=== PATIENT | female | born 1965 | race Caucasian/White ===

== ENCOUNTER 2017-04-13 15:07 | Inpatient (IN) | payer BC, OTHER ==
[~2017-04-13] VITALS: Ht 165.1 cm; Wt 103.3 kg
[~2017-04-13 15:07] MED LIST: ADULT LOW STREN81 M2 PO; ALLEGRA ALLERG180 MG PO; ASPIR-LOW81 MG PO; ASPIRIN CHEWABL81 M2 PO; AVINZA90 MG PO; AVINza PO; Allegra PO; BUDEPRION SR150 MG PO; CALCIO DEL MAR500 MG PO; CELEXA40 MG PO; CRESTOR20 MG PO; CRESTOR40 MG PO; CYMBALTA60 MG PO; DESYREL100 MG PO; DEXILANT60 MG PO; FARXIGA10 MG PO; FLURAZEPAM HCL30 MG PO; FOLIC ACID1 MG PO; FOLVITE1 M1 PO; GABAPENTIN600 MG PO; LUNESTA3 MG PO; Lunesta PO; METHADONE10 MG PO; METHOTREXATE2.5 MG PO; MIRALAX255 GM PO; MIRAPEX0.25 MG PO; Mirapex PO; NEXIUM40 MG PO; NICODERM CQ1 EAC2 TD; NUVIGIL150 MG PO; PEPCID40 MG PO; Pepcid PO; SEROQUEL200 MG PO; SEROquel PO; SKELAXIN400 M1 PO; SKELAXIN800 MG PO; ST. JOSEPH ASPI81 MG PO; Skelaxin PO; TRAZODONE HCL100 MG PO; Tums PO; WELLBUTRIN XL150 MG PO; ZETIA10 MG PO; ZOFRAN4 MG/2 M1 IV
[2017-04-13 15:59] LABS: HEMATOCRIT 50.8 % (36.0-46.0); HEMOGLOBIN 16.5 G/DL (11.9-15.5); MCH 30.3 PG (29.0-34.0); MCHC 32.5 G/DL (30.0-36.0); MCV 93.4 FL (83-99); PLATELET COUNT 212 K/uL (156-360); RBC DIS.WIDTH-CV 14.5 % (11.8-14.6); RBC DIS.WIDTH-SD 48.9 % (39-53); RED BLOOD COUNT 5.44 M/uL (3.80-5.20); WHITE BLOOD COUNT 12.5 K/uL (4.1-10.2)
[2017-04-13 16:23] LABS: TROP-I INTERPRETATION NEGATIVE; TROPONIN-I 0.03 ng/mL (0.0-0.30)
[2017-04-13 16:29] LABS: CHLORIDE 106 mEq/L (99-109); POTASSIUM 4.9 mEq/L (3.7-5.4); SODIUM 140 mEq/L (136-147)
[2017-04-13 16:31] LABS: GLUCOSE 176 mg/dL (70-99)
[2017-04-13 16:32] LABS: TOTAL PROTEIN 7.4 g/dL (6.4-8.3)
[2017-04-13 16:33] LABS: TOTAL BILIRUBIN 0.4 mg/dL (0.0-1.0)
[2017-04-13 16:34] LABS: SERUM ETHYL ALCOHOL < 10 mg/dL
[2017-04-13 16:35] LABS: ALKALINE PHOSPHATASE 86 IU/L (3-129); CREATININE 0.7 mg/dL (0.6-1.3); GFR ESTIMATE (CALCULATED) > 59 mL/min/
[2017-04-13 16:36] LABS: UREA NITROGEN (BUN) 6 mg/dL (9-23)
[2017-04-13 16:37] LABS: AST (GOT) 23 IU/L (2-34)
[2017-04-13 16:38] LABS: ALT (GPT) 32 IU/L (3-49); CREATINE KINASE 39 IU/L (1-294)
[2017-04-13 16:57] LABS: BASE EXCESS -5.8 mEq/L (-3 to +3); BICARBONATE 24.4 mEq/L (22-26); CARBOXY HGB 3.4 % (0-5); COMMENTS - BLOOD GASES A+C+; DEVICE NFBM; METHEMOGLOBIN 0.7 % (0-1.5); O2 FLOW 15 L/MIN; PCO2 67 mm Hg (35-45); PO2 114 mm Hg (80-100); SITE LR; TOTAL RESP RATE 22 resp/min; pH 7.17 (7.35-7.45)
[2017-04-13 17:09] LABS: AMPHETAMINE NEGATIVE (500 ng/mL); BARBITURATES NEGATIVE (200 ng/mL); BENZODIAZEPINES NEGATIVE (150 ng/mL); BUPRENORPHINE NEGATIVE (10 ng/mL); COCAINE NEGATIVE (150 ng/mL); METHADONE PRESUMPTIVE POSITIVE (200 ng/mL); METHAMPHETAMINE NEGATIVE (500 ng/mL); OPIATES (MORPHINE) NEGATIVE (100 ng/mL); OXYCODONE NEGATIVE (100 ng/mL); PHENCYCLIDINE NEGATIVE (25 ng/mL); PROPOXYPHENE NEGATIVE (300 ng/mL); THC CANNABINOIDS NEGATIVE (50 ng/mL); TRICYCLIC ANTIDEPRESSANTS PRESUMPTIVE POSITIVE (300 ng/mL)
[2017-04-13 18:34] LABS: BASE EXCESS -5.6 mEq/L (-3 to +3); BICARBONATE 23.8 mEq/L (22-26); CARBOXY HGB 2.5 % (0-5); METHEMOGLOBIN 0.8 % (0-1.5)
[2017-04-13 18:35] LABS: PCO2 61 mm Hg (35-45); PO2 163 mm Hg (80-100); SITE LR
[2017-04-13 18:36] LABS: COMMENTS - BLOOD GASES A+C+; DEVICE VENT; FI02 50 %
[2017-04-13 18:37] LABS: MODE SPONT; PEEP 5 CM/H20; PRES. SUPPORT 10 CM/H2O; TOTAL RESP RATE 19 resp/min
[2017-04-13] MEDS ORDERED: TRIAZOLAM0.25 MG PO (21:04)
[2017-04-13] MEDS ORDERED: TOPIRAMATE25 MG PO (21:05)
[2017-04-13] MEDS ORDERED: CITALOPRAM HBR40 MG PO (21:06)
[2017-04-13] MEDS ORDERED: CLOPIDOGREL75 MG PO (21:07)
[2017-04-13] MEDS ORDERED: DULOXETINE HCL60 MG PO (21:09)
[2017-04-13] MEDS ORDERED: JARDIANCE10 MG PO (21:10)
[2017-04-13] MEDS ORDERED: PRAMIPEXOLE D0.25 MG PO (21:10)
[2017-04-13] MEDS ORDERED: EZETIMIBE10 MG PO (21:11)
[2017-04-13] MEDS ORDERED: BACLOFEN10 MG PO (21:12)
[2017-04-13] MEDS ORDERED: ROSUVASTATIN CA20 MG PO (21:13)
[2017-04-13] MEDS ORDERED: QUETIAPINE FUM200 MG PO (21:14)
[2017-04-13] MEDS ORDERED: DESYREL100 MG PO (21:15)
[2017-04-13] MEDS ORDERED: VIMOVO 500-201 EAC1 PO (21:16)
[2017-04-13 22:06] LABS: BASE EXCESS -3.3 mEq/L (-3 to +3); BICARBONATE 23.6 mEq/L (22-26); CARBOXY HGB 1.1 % (0-5); METHEMOGLOBIN 0.7 % (0-1.5); PO2 133 mm Hg (80-100)
[2017-04-13 22:07] LABS: COMMENTS - BLOOD GASES C+; DEVICE MASK VENT; FI02 50 %; MODE SPONT; PCO2 48 mm Hg (35-45); PEEP 5 CM/H20; PRES. SUPPORT 10 CM/H2O; SITE LR; TOTAL RESP RATE 20 resp/min
[2017-04-14 01:42] VITALS: BP 143/69
[2017-04-14 03:15] VITALS: BP 122/69
[2017-04-14 08:53] VITALS: BP 114/78
[2017-04-14 11:49] VITALS: BP 123/69
[2017-04-14] MEDS ORDERED: TRAMADOL HCL50 MG PO (15:18)
== END 2017-04-14 16:17 | disposition home or self-care (01) | DRG 205 ==
LOC: EME 15:07 → EDOF 21:10 → ENRESERV 21:19 → CANRESERV 21:29 → ENRESERV 21:35 → EDOF 23:58 → ENPENDDIS 04-14 → ENRESERV 04-14 → 4EAST 04-14 01:20
PROVIDERS: Emergency Medicine; Internal Medicine
PROC: 5A09357 Assistance with Respiratory Ventilation, Less than 24 Consecutive Hours, Continuous Positive Airway Pressure (ICD-10-PCS; principal; 2017-04-13)
DX: R09.02 Hypoxemia (principal); R40.20 Unspecified coma; E87.2 Acidosis; J44.1 Chronic obstructive pulmonary disease with (acute) exacerbation; F11.20 Opioid dependence, uncomplicated; E11.9 Type 2 diabetes mellitus without complications; K21.9 Gastro-esophageal reflux disease without esophagitis; G43.909 Migraine, unspecified, not intractable, without status migrainosus; G47.00 Insomnia, unspecified; G89.29 Other chronic pain; M79.7 Fibromyalgia; F32.9 Major depressive disorder, single episode, unspecified; F41.9 Anxiety disorder, unspecified; M19.90 Unspecified osteoarthritis, unspecified site; F17.210 Nicotine dependence, cigarettes, uncomplicated; E66.9 Obesity, unspecified; Z68.37 Body mass index [BMI] 37.0-37.9, adult; Z86.73 Personal history of transient ischemic attack (TIA), and cerebral infarction without residual deficits; Z79.02 Long term (current) use of antithrombotics/antiplatelets; Z79.82 Long term (current) use of aspirin
CPT/HCPCS: 36600; 70450; 71045; 80053; 81003; 82550; 82803; 82948; 84484; 85027; 94002; 94640; 99281; 99285; G0480; J1650; J2310; J2930; J7030; J7042

== ENCOUNTER 2017-09-21 20:52 | Emergency (ER) | payer BC, OTHER ==
[~2017-09-21] VITALS: Ht 170.2 cm; Wt 96.0 kg
[~2017-09-21 20:52] MED LIST changes: +BACLOFEN10 MG PO; +CITALOPRAM HBR40 MG PO; +CLOPIDOGREL75 MG PO; +DULOXETINE HCL60 MG PO; +EZETIMIBE10 MG PO; +JARDIANCE10 MG PO; +PRAMIPEXOLE D0.25 MG PO; +QUETIAPINE FUM200 MG PO; +ROSUVASTATIN CA20 MG PO; +TOPIRAMATE25 MG PO; +TRAMADOL HCL50 MG PO; +TRIAZOLAM0.25 MG PO; +VIMOVO 500-201 EAC1 PO
[2017-09-21] MEDS ORDERED: AUGMENTIN875 MG PO (21:45)
[2017-09-21] MEDS ORDERED: NORCO 5/3251 TABLET PO (21:57)
[2017-09-21 22:23] VITALS: BP 125/81
== END 2017-09-21 22:49 | disposition home or self-care (01) ==
LOC: EME 20:52
DX: H66.92 Otitis media, unspecified, left ear (principal); E11.9 Type 2 diabetes mellitus without complications; Z79.02 Long term (current) use of antithrombotics/antiplatelets; Z88.5 Allergy status to narcotic agent; Z88.6 Allergy status to analgesic agent; F17.200 Nicotine dependence, unspecified, uncomplicated
CPT/HCPCS: 99281; 99283; J3010

== ENCOUNTER 2017-09-23 09:13 | Emergency (ER) | payer BC, OTHER ==
[~2017-09-23] VITALS: Ht 170.2 cm; Wt 95.9 kg
[~2017-09-23 09:13] MED LIST changes: +AUGMENTIN875 MG PO; +NORCO 5/3251 TABLET PO
[2017-09-23 10:44] LABS: HEMATOCRIT 47.3 % (36.0-46.0); HEMOGLOBIN 16.7 G/DL (11.9-15.5); MCH 31.6 PG (29.0-34.0); MCHC 35.3 G/DL (30.0-36.0); MCV 89.4 FL (83-99); NRBC (%) 0.4 /100 WBC (0-0); PLATELET COUNT 205 K/uL (156-360); RBC DIS.WIDTH-CV 13.8 % (11.8-14.6); RBC DIS.WIDTH-SD 44.6 % (39-53); RED BLOOD COUNT 5.29 M/uL (3.80-5.20)
[2017-09-23 10:55] LABS: ALBUMIN 4.5 g/dL (3.2-4.8); CHLORIDE 108 mEq/L (99-109); POTASSIUM 3.4 mEq/L (3.7-5.4); SODIUM 141 mEq/L (136-147)
[2017-09-23 10:57] LABS: GLUCOSE 108 mg/dL (70-99); TOTAL PROTEIN 7.5 g/dL (6.4-8.3)
[2017-09-23 10:59] LABS: TOTAL BILIRUBIN 0.6 mg/dL (0.0-1.0)
[2017-09-23 11:00] LABS: SERUM ETHYL ALCOHOL < 10 mg/dL
[2017-09-23 11:01] LABS: ALKALINE PHOSPHATASE 77 IU/L (3-129); CREATININE 0.8 mg/dL (0.6-1.3); GFR ESTIMATE (CALCULATED) > 59 mL/min/
[2017-09-23 11:02] LABS: AST (GOT) 18 IU/L (2-34); UREA NITROGEN (BUN) 19 mg/dL (9-23)
[2017-09-23 11:03] LABS: DIRECT BILIRUBIN 0.3 mg/dL (0.0-0.3)
[2017-09-23 11:04] LABS: ALT (GPT) 29 IU/L (3-49)
[2017-09-23 11:26] LABS: AMPHETAMINE NEGATIVE (500 ng/mL); BARBITURATES NEGATIVE (200 ng/mL); BENZODIAZEPINES NEGATIVE (150 ng/mL); BUPRENORPHINE NEGATIVE (10 ng/mL); COCAINE NEGATIVE (150 ng/mL); METHADONE NEGATIVE (200 ng/mL); METHAMPHETAMINE NEGATIVE (500 ng/mL); OPIATES (MORPHINE) PRESUMPTIVE POSITIVE (100 ng/mL); OXYCODONE NEGATIVE (100 ng/mL); PHENCYCLIDINE NEGATIVE (25 ng/mL); PROPOXYPHENE NEGATIVE (300 ng/mL); THC CANNABINOIDS NEGATIVE (50 ng/mL); TRICYCLIC ANTIDEPRESSANTS PRESUMPTIVE POSITIVE (300 ng/mL)
[2017-09-23 12:57] LABS: APPEARANCE CLEAR ((CLEAR)); BILIRUBIN NEGATIVE; BLOOD SMALL; COLOR YELLOW ((YELLOW)); GLUCOSE (STRIP) >=500; KETONES 80; LEUKOCYTES NEGATIVE; NITRITE NEGATIVE; PROTEIN (STRIP) NEGATIVE
[2017-09-23 13:10] LABS: BACTERIA NONE SEEN /HPF; EPITHELIAL CELLS RARE /HPF; HYALINE CASTS 0-5 /LPF; MUCUS 2+ /LPF; RED BLOOD CELLS 0-5 /HPF (0-5); UCUL ADDED? NO; WHITE BLOOD CELLS 0-5 /HPF (0-5)
[2017-09-23 17:26] VITALS: BP 117/67
== END 2017-09-23 17:36 | disposition home or self-care (01) ==
LOC: EME 09:13
PROVIDERS: Emergency Medicine
DX: R51 Headache (principal); E11.9 Type 2 diabetes mellitus without complications; K21.9 Gastro-esophageal reflux disease without esophagitis; M79.7 Fibromyalgia; M48.00 Spinal stenosis, site unspecified; G43.909 Migraine, unspecified, not intractable, without status migrainosus; F41.9 Anxiety disorder, unspecified; F32.9 Major depressive disorder, single episode, unspecified; F17.200 Nicotine dependence, unspecified, uncomplicated; Z88.5 Allergy status to narcotic agent; Z88.6 Allergy status to analgesic agent; Z95.9 Presence of cardiac and vascular implant and graft, unspecified; Z90.710 Acquired absence of both cervix and uterus
CPT/HCPCS: 70450; 70491; 71046; 80048; 80076; 81003; 82140; 82948; 84999; 85027; 93005; 99281; 99285; G0480; J1100; J1200; J1885; J2270; J2765; J7040

== ENCOUNTER 2017-09-24 12:45 | Inpatient (IN) | payer BC, OTHER ==
[~2017-09-24] VITALS: Ht 170.2 cm; Wt 100.0 kg
[2017-09-24 14:51] LABS: BASOPHIL (%) 0.2 % (0-1); EOSINOPHIL (%) 0.2 % (0-5); HEMATOCRIT 45.2 % (36.0-46.0); HEMOGLOBIN 15.9 G/DL (11.9-15.5); IMMATURE GRANULOCYTE (%) 0.5 % (0.0-0.7); LYMPHOCYTE COUNT 2.6 K/uL (1.0-2.8); MCH 31.7 PG (29.0-34.0); MCHC 35.2 G/DL (30.0-36.0); MONOCYTE (%) 6.8 % (3-12); MONOCYTE COUNT 0.7 K/uL (0-0.8); NEUTROPHIL (%) 67.3 % (45-76); NEUTROPHIL COUNT 7.1 K/uL (1.8-6.4); PLATELET COUNT 186 K/uL (156-360); RBC DIS.WIDTH-SD 46.2 % (39-53); RED BLOOD COUNT 5.02 M/uL (3.80-5.20); WHITE BLOOD COUNT 10.6 K/uL (4.1-10.2)
[2017-09-24 15:24] LABS: ALBUMIN 4.2 G/DL (3.2-4.8); ALKALINE PHOSPHATASE 52 IU/L (3-129); ALT (GPT) 17 IU/L (3-49); AST (GOT) 11 IU/L (2-34); CHLORIDE 108 MEQ/L (99-109); CREATININE 0.6 MG/DL (0.6-1.3); GFR ESTIMATE (CALCULATED) > 59 mL/min/; GLUCOSE 79 mg/dL (70-99); POTASSIUM 3.3 MEQ/L (3.7-5.4); SODIUM 142 MEQ/L (136-147); TOTAL BILIRUBIN 0.7 MG/DL (0.0-1.0); TOTAL PROTEIN 7.1 G/DL (6.4-8.3); UREA NITROGEN (BUN) 17 mg/dL (9-23)
[2017-09-24 18:32] LABS: APPEARANCE CLEAR/COLORLESS; CSF TUBE NUMBER TUBE #4
[2017-09-24 18:36] LABS: RED CELL COUNT 2 /MM^3 (0-1); WHITE CELL COUNT 0 /MM^3 (0-5)
[2017-09-24 18:38] LABS: CSF EOSINOPHILS 0 % (0-25); MONONUCLEAR WBC'S 100 % (50-90); POLYNUCLEAR WBC'S 0 % (0-3)
[2017-09-24 18:50] LABS: CSF PROTEIN 46 mg/dL (15-45)
[2017-09-24 18:55] LABS: GLUCOSE, CSF 59 mg/dL (40-80)
[2017-09-24 22:38] VITALS: BP 125/61
[2017-09-25 03:15] VITALS: BP 119/56
[2017-09-25 07:15] VITALS: BP 107/54
[2017-09-25 11:10] VITALS: BP 120/58
[2017-09-25] MEDS ORDERED: TRAMADOL HCL50 MG PO (14:31)
[2017-09-25] MEDS ORDERED: TRIAZOLAM0.25 MG PO (14:36)
[2017-09-25] MEDS ORDERED: PEPCID40 MG PO (14:38)
[2017-09-25] MEDS ORDERED: ROSUVASTATIN CA20 MG PO (14:40)
[2017-09-25 15:15] VITALS: BP 122/63
[2017-09-25 20:45] VITALS: BP 123/71
[2017-09-26 00:57] VITALS: BP 100/50
[2017-09-26 05:15] LABS: HEMATOCRIT 40.2 % (36.0-46.0); HEMOGLOBIN 14.1 G/DL (11.9-15.5); MCH 31.4 PG (29.0-34.0); MCHC 35.1 G/DL (30.0-36.0); MCV 89.5 FL (83-99); PLATELET COUNT 166 K/uL (156-360); RBC DIS.WIDTH-CV 13.8 % (11.8-14.6); RBC DIS.WIDTH-SD 44.8 % (39-53); RED BLOOD COUNT 4.49 M/uL (3.80-5.20); WHITE BLOOD COUNT 5.5 K/uL (4.1-10.2)
[2017-09-26 05:31] LABS: ALBUMIN 3.8 g/dL (3.2-4.8); CHLORIDE 113 mEq/L (99-109); POTASSIUM 3.8 mEq/L (3.7-5.4); SODIUM 142 mEq/L (136-147)
[2017-09-26 05:37] LABS: ALKALINE PHOSPHATASE 63 IU/L (3-129); CREATININE 0.6 mg/dL (0.6-1.3); GFR ESTIMATE (CALCULATED) > 59 mL/min/
[2017-09-26 05:38] LABS: UREA NITROGEN (BUN) 8 mg/dL (9-23)
[2017-09-26 05:39] LABS: AST (GOT) 11 IU/L (2-34)
[2017-09-26 05:40] LABS: ALT (GPT) 16 IU/L (3-49)
[2017-09-26 05:58] LABS: GLUCOSE 101 mg/dL (70-99); TOTAL BILIRUBIN 0.4 mg/dL (0.0-1.0); TOTAL PROTEIN 6.3 g/dL (6.4-8.3)
[2017-09-26 07:00] VITALS: BP 141/66
[2017-09-26 11:40] VITALS: BP 138/72
[2017-09-26 15:16] VITALS: BP 133/65
[2017-09-26 19:15] VITALS: BP 100/49
[2017-09-27 00:29] VITALS: BP 134/69
[2017-09-27 01:21] LABS: INTER. NORMALIZED RATIO 1.7
[2017-09-27 01:43] LABS: PTT ND SEC (25-37)
[2017-09-27 08:00] VITALS: BP 145/80
[2017-09-27 10:42] VITALS: BP 108/60
[2017-09-27 15:39] VITALS: BP 111/70
[2017-09-27 19:35] VITALS: BP 129/71
[2017-09-27 22:09] LABS: HSV CSF Spec Source CSF (())
[2017-09-28] VITALS (7 sets, daily range): BP systolic 112–141; BP diastolic 58–87
[2017-09-28 05:33] LABS: HEMATOCRIT 45.4 % (36.0-46.0); HEMOGLOBIN 15.3 G/DL (11.9-15.5); MCH 31.7 PG (29.0-34.0); MCHC 33.7 G/DL (30.0-36.0); NRBC (%) 0.2 /100 WBC (0-0); PLATELET COUNT 207 K/uL (156-360); RBC DIS.WIDTH-CV 14.8 % (11.8-14.6); RBC DIS.WIDTH-SD 50.6 % (39-53); RED BLOOD COUNT 4.82 M/uL (3.80-5.20); WHITE BLOOD COUNT 11.1 K/uL (4.1-10.2)
[2017-09-28 05:45] LABS: MCV 94.2 FL (83-99)
[2017-09-29 07:50] VITALS: BP 156/82
[2017-09-29 15:58] VITALS: BP 136/86
[2017-09-30] VITALS (7 sets, daily range): BP systolic 107–172; BP diastolic 68–88
[2017-09-30 11:37] LABS: BASOPHIL (%) 0.2 % (0-1); EOSINOPHIL (%) 0.1 % (0-5); HEMATOCRIT 42.9 % (36.0-46.0); HEMOGLOBIN 15.1 G/DL (11.9-15.5); IMMATURE GRANULOCYTE (%) 1.7 % (0.0-0.7); LYMPHOCYTE (%) 9.2 % (15-42); LYMPHOCYTE COUNT 0.9 K/uL (1.0-2.8); MCH 31.9 PG (29.0-34.0); MCHC 35.2 G/DL (30.0-36.0); MCV 90.5 FL (83-99); MONOCYTE (%) 5.8 % (3-12); MONOCYTE COUNT 0.5 K/uL (0-0.8); NEUTROPHIL COUNT 7.6 K/uL (1.8-6.4); RBC DIS.WIDTH-CV 14.4 % (11.8-14.6); RBC DIS.WIDTH-SD 47.4 % (39-53); RED BLOOD COUNT 4.74 M/uL (3.80-5.20); WHITE BLOOD COUNT 9.2 K/uL (4.1-10.2)
[2017-09-30 12:12] LABS: C-REACTIVE PROTEIN 1.1 MG/L (0-10); CHLORIDE 102 MEQ/L (99-109); CREATININE 0.5 MG/DL (0.6-1.3); GFR ESTIMATE (CALCULATED) > 59 mL/min/; GLUCOSE 152 mg/dL (70-99); POTASSIUM 3.4 MEQ/L (3.7-5.4); SODIUM 143 MEQ/L (136-147); UREA NITROGEN (BUN) 9 mg/dL (9-23)
[2017-09-30 12:42] LABS: PLAT.SUFFICIENCY ADEQUATE; PLATELET COUNT 210 K/uL (156-360)
[2017-09-30 14:29] LABS: ERTH.SED.RATE 2 MM/HR (0-30)
[2017-09-30 17:02] LABS: INTER. NORMALIZED RATIO 1.1
[2017-09-30 17:05] LABS: PTT 22.3 SEC (25-37)
[2017-10-01 03:19] VITALS: BP 114/64
[2017-10-01 06:25] LABS: HEMATOCRIT 38.1 % (36.0-46.0); MCH 30.7 PG (29.0-34.0); MCHC 34.1 G/DL (30.0-36.0); MCV 90.1 FL (83-99); PLATELET COUNT 196 K/uL (156-360); RBC DIS.WIDTH-CV 14.3 % (11.8-14.6); RBC DIS.WIDTH-SD 46.1 % (39-53); RED BLOOD COUNT 4.23 M/uL (3.80-5.20); WHITE BLOOD COUNT 7.4 K/uL (4.1-10.2)
[2017-10-01 07:35] VITALS: BP 123/73
[2017-10-01 11:40] VITALS: BP 117/58
[2017-10-01 16:08] VITALS: BP 120/78
[2017-10-01 20:18] VITALS: BP 121/62
[2017-10-02 00:01] VITALS: BP 129/76
[2017-10-02 03:40] VITALS: BP 153/93
[2017-10-02 07:20] VITALS: BP 143/74
[2017-10-02 11:50] VITALS: BP 137/77
[2017-10-02 15:32] VITALS: BP 123/70
[2017-10-02] MEDS ORDERED: DILAUDID1 MG/ML IV (17:46)
== END 2017-10-02 19:13 | disposition short-term general hospital (02) | DRG 97 ==
LOC: EME 12:45 → EDOF 18:26 → 5SOUTH 18:26 → 4SOUTH 18:26 → ENRESERV 18:34 → 4SOUTH 22:16 → ENRESERV 09-28 21:51 → ENRESERVTM 09-28 21:53 → ENRESERVDT 09-28 21:53 → 5SOUTH 09-28 23:04 → ENRESERV 09-30 11:32 → 5SOUTH 09-30 11:32 → 4EAST 09-30 11:49
PROVIDERS: Emergency Medicine; Hospitalist; Internal Medicine; Surgery
PROC: 009U3ZX Drainage of Spinal Canal, Percutaneous Approach, Diagnostic (ICD-10-PCS; principal; 2017-09-24)
PROC: 06HM33Z Insertion of Infusion Device into Right Femoral Vein, Percutaneous Approach (ICD-10-PCS; 2017-09-30)
PROC: 4A10X4Z Monitoring of Central Nervous Electrical Activity, External Approach (ICD-10-PCS; 2017-10-01)
DX: A86 Unspecified viral encephalitis (principal); G08 Intracranial and intraspinal phlebitis and thrombophlebitis; G93.6 Cerebral edema; G43.919 Migraine, unspecified, intractable, without status migrainosus; G40.409 Other generalized epilepsy and epileptic syndromes, not intractable, without status epilepticus; H66.91 Otitis media, unspecified, right ear; G93.2 Benign intracranial hypertension; Q27.39 Arteriovenous malformation, other site; K21.9 Gastro-esophageal reflux disease without esophagitis; F41.9 Anxiety disorder, unspecified; I10 Essential (primary) hypertension; F32.9 Major depressive disorder, single episode, unspecified; M19.90 Unspecified osteoarthritis, unspecified site; M79.7 Fibromyalgia; E11.9 Type 2 diabetes mellitus without complications; F17.210 Nicotine dependence, cigarettes, uncomplicated; Z98.2 Presence of cerebrospinal fluid drainage device; G89.29 Other chronic pain; E66.9 Obesity, unspecified; Z68.32 Body mass index [BMI] 32.0-32.9, adult; G47.00 Insomnia, unspecified; Z90.710 Acquired absence of both cervix and uterus
CPT/HCPCS: 62270; 70450; 70491; 70544; 70553; 71046; 77003; 80048; 80053; 80076; 81003; 82140; 82945; 82948; 83605; 84157; 84999; 85025; 85027; 85610; 85651; 85730; 86038; 86140; 86215 90; 86255 90; 87040; 87070; 87205; 87529 90; 89051; 93005; 94799; 95819; 99281; 99283; 99285; C1751; C1753; C1894; G0480; J0133; J0696; J1100; J1170; J1200; J1650; J1815; J1885; J1953; J2060; J2270; J2310; J2405; J2765; J3010; J7030; J7040; J7050; J8610; S0030